=== PATIENT | male | born 1975 | race African-American/Black ===

== ENCOUNTER 2024-08-20 08:21 | Outpatient (REF) | payer OTHER, SELFPAY ==
[2024-08-20 11:20] LABS: MANUAL DIFF FLAG NO
[2024-08-20 11:27] LABS: Basophils Percent Auto 0.6 % (0-2); Eosinophils Absolute Auto 0.1 X10*3/uL (0.0-0.4); Eosinophils Percent Auto 1.5 % (0-4); Hematocrit 45.7 % (42.0-52.0); Hemoglobin 15.7 g/dl (14.0-18.0); Imm Gran Abs Auto 0.01 X10*3/uL (0.00-0.03); Imm Gran Pct Auto 0.2 % (0.0-0.4); Lymphocytes Absolute Auto 1.6 X10*3/uL (1.2-4.9); Lymphocytes Percent Auto 29.5 % (20-40); Mean Corpuscular HGB Conc 34.4 g/dl (31.0-36.0); Mean Corpuscular Hemoglobin 30.6 pg (27.0-33.0); Mean Corpuscular Volume 89.1 fL (80.0-98.0); Mean Platelet Volume 10.7 fL (9.4-12.4); Monocytes Absolute Auto 0.3 X10*3/uL (0.1-1.2); Monocytes Percent Auto 5.2 % (2-11); Neutrophils Absolute Auto 3.4 x10*3/uL (2.0-8.3); Platelet Count 246 X10*3/uL (160-400); Red Blood Count 5.13 X10*6/uL (4.60-5.80); Red Cell Distribution Width 11.9 % (11.0-16.0); White Blood Count 5.4 X10*3/uL (4.8-10.8)
[2024-08-20 11:53] LABS: Alanine Aminotransferase 20 U/L (0-40); Albumin Level 4.1 g/dL (3.5-5.0); Alkaline Phosphatase 72 U/L (39-117); Anion Gap 12 (12-20); Aspartate Amino Transferase 18 U/L (5-37); Bilirubin Total 0.6 mg/dL (0.0-1.0); Blood Urea Nitrogen 15 mg/dL (9-16); Calcium 8.9 mg/dL (8.4-10.2); Carbon Dioxide 28 mmol/L (22-29); Chloride 102 mmol/L (96-108); Cholesterol 209 mg/dL (<200); Estimated Glomerular Filt Rate > 60; Glucose Random 300 mg/dL (60-115); HDL Cholesterol 46 mg/dL (>40); LDL Cholesterol Calculated 128 mg/dL (<100); Potassium 3.5 mmol/L (3.3-5.1); Sodium 138 mmol/L (135-145); Total Protein 7.1 g/dL (6.5-8.0); Triglycerides 176 mg/dL (<150)
[2024-08-20 11:58] LABS: PSA,Total (Free>4and<10) 0.96 ng/mL (0.00-4.00)
[2024-08-20 12:02] LABS: HBS Num1 0.19 mIU/mL (0-7.99); HBc Num1 0.08 S/CO (0.00-0.79); HIV AB/AG Nonreactive (Nonreactive); HIV Num 1 0.08 S/CO (0.00-0.99); Hepatitis B Core Antibody Nonreactive (Nonreactive); Hepatitis B Surface Antigen Negative (Negative); ~HepC Num1 0.15 S/CO (0.00-0.79); ~Hepatitis B Surface Antibody NONREACTIVE (Nonreactive); ~Hepatitis C Antibody Nonreactive (Nonreactive)
[2024-08-20 12:08] LABS: TSH reflex Free T4 1.94 uIU/mL (0.32-4.0)
[2024-08-20 12:13] LABS: Folate 15.1 ng/mL (> or = 4.0); Vitamin B12 791 pg/mL (200-900)
[2024-08-20 13:26] LABS: CT PCR NOT DETECTED (Not Detect.); NG PCR NOT DETECTED (Not Detect.)
== END 2024-08-20 08:22 | disposition home or self-care (01) ==
LOC: HO.HHCL 08:21
PROVIDERS: Visit Provider Nurse Practitioner Family
DX: Z00.00 Encounter for general adult medical examination without abnormal findings (principal)
CPT/HCPCS: 80053; 80061; 82607; 82746; 84153; 84443; 85025; 86704; 86706; 86803; 87340; 87389; 87491; 87591

== ENCOUNTER 2024-09-10 08:22 | Outpatient (REF) | payer OTHER, SELFPAY ==
[2024-09-10 11:57] LABS: Anion Gap 10 (12-20); Blood Urea Nitrogen 12 mg/dL (9-16); Calcium 10.2 mg/dL (8.4-10.2); Carbon Dioxide 30 mmol/L (22-29); Chloride 105 mmol/L (96-108); Estimated Glomerular Filt Rate > 60; Glucose Random 110 mg/dL (60-115); Potassium 3.6 mmol/L (3.3-5.1); Sodium 141 mmol/L (135-145)
== END 2024-09-10 08:23 | disposition home or self-care (01) ==
LOC: HO.HHCL 08:22
PROVIDERS: Visit Provider Nurse Practitioner Family
DX: E11.65 Type 2 diabetes mellitus with hyperglycemia (principal)
CPT/HCPCS: 36415; 80048

== ENCOUNTER 2024-09-16 08:56 | Outpatient (REF) | payer OTHER, SELFPAY ==
[2024-09-16 11:58] LABS: Creatinine Urine 36.94 mg/dL; Microalbumin Urine < 5.0 mg/L
== END 2024-09-16 08:57 | disposition home or self-care (01) ==
LOC: HO.HHCL 08:56
PROVIDERS: Visit Provider Nurse Practitioner Family
DX: E11.65 Type 2 diabetes mellitus with hyperglycemia (principal)
CPT/HCPCS: 82570

== ENCOUNTER 2024-10-09 15:32 | Outpatient (REF) | payer OTHER, SELFPAY ==
--- OUTSIDE RECORDS SUMMARY | 2024-10-09 15:35 | XMS_ITS | Encounter Summary ---
Author Organization [employer] Address [address] [place] [address] Care Team Providers Care Administrative Support Manager Name Role Phone Monae Sneed BODY STRAIGHTENER Primary Care Provider [phone] Reason for Visit * Reason Onset Date Comments PA for Trulicity 09/10/2024 Encounter Details Date Type Department Care Team (Late st Contact Info) Description 09/10/2024 Telephone [facility] [address] [place], [place] [phone] Jacquelyn Gardiner MA PA for Trulicity Social History Tobacco Use Types Packs/Day Years Used Date Smoking Tobacco: Never Smokeless Tobacco: Never Alcohol Use Standard Drinks/Week Comments Yes 0 (1 standard drink = 0.6 oz pur e alcohol) Social drinker Depression Answer Date Recorded Patient Health Questionnaire-9 Score 0 08/19/2024 Patient Health Questionnaire-9 Score 0 08/19/2024 Last PHQ-9: Questionnaire Data Not on file 1 10/20/2023 Housing Stability Answer Date Recorded What is your housing situation today? I have yung rose 08/12/[address] you li ve. Do you have problems with any of the following? None of the above 08/12/2024 Food Insecurity Answer Date Recorded Within the past 12 months, y ou worried that your food would run out before you got money to buy more: Never True 08/12/2024 Within the past 12 months,th e food you bought just didn't last and you didn't have enough money to get more: Never True 07/2024 Transportation Answer Date Recorded In the past 12 months, has l ack of transportation kept you from medical appts, meetings, work or from getting things needed for daily living? No 08/12/2024 Utilities Answer Date Recorded In the past 12 months, has t he electric, gas, oil or water company threatened to shut off services in your home? No 08/12/2024 Depression Answer Date Recorded Patient Health Questionnaire-2 Score 0 08/19/2024 Internet Access Answer Date Recorded Internet Access Q1 Yes 08/12/2024 Internet Access Q2 Not on file 08/12/2024 Sex and Gender Information Value Date Recorded Sex Assigned at Male 07/02/2022 10:17 AM EDT Legal Sex Male 10:17 AM EDT Gender Identity Male 08/19/2024 2:22 PM EST Sexual Orientation Straight 08/19/2024 2: 22 PM EST documented as of this encounter Miscellaneous Notes * Telephone Encounter - Jacquelyn Gardiner MA - 09/10/2024 10:26 AM EST PA for Trulicity 0.75mg signed and faxed to [facility] . Confirmation received and sent to scan. If patient calls to check status on above, please advise them to contact Pharmacy . documented in this encounter Plan of Treatment Upcoming Encounters Date Type Department Care Team (Late st Contact Info) Description 10/12/2024 3:30 PM EST Medication Management [facility] [address] [place] [address] Danyell Bird, BrandonD [address] [place] [address] documented as of this encounter Visit Diagnoses Not on filedocumented in this encounter Additional Health Concerns Assessment Noted Time PHQ-9 Depression Total Score: 0 08/19/20 24 2:33 PM EST documented as of this encounter Care Teams Administrative Support Manager Relationship Specialty Start Date End Date Monae Sneed FNP [address] [place] [address] PCP - General Family Medicine 08/19/24 documented as of this encounter
--- OUTSIDE RECORDS SUMMARY | 2024-10-09 15:35 | XMS_ITS | Encounter Summary ---
Author Organization [email or web address] Address [address] [facility] [address] [place] [address] Care Team Providers Care Oyster Shucker Name Role Phone Monae Sneed CLAY DRY PRESS OPERATOR Primary Care Provider [phone] Reason for Visit * Reason Onset Date Comments Medication Prior Authorization 09/14/2024 T rulicity Encounter Details Date Type Department Care Team (Late st Contact Info) Description 09/14/2024 Telephone [facility] [address] [place], [place] [phone] Kenyatta Arreguin RN [address] [place] [address] Medication Prior Authorization (Trulicity) Social History Tobacco Use Types Packs/Day Years [...] encounter Miscellaneous Notes * Telephone Encounter - Kenyatta Arreguin RN - 09/14/2024 11:32 AM EST Davon GRIMES approved. [facility] pharmacy informed. Pharmacy will fill Rx today and call patient when ready. documented in this encounter Plan of Treatment Upcoming Encounters Date Type Department Care Team (Late st Contact Info) Description 10/12/2024 3:30 PM EST Medication Management [facility] [address] [place] [address] Danyell Bird, PharmD [address] [place] [address] documented as of this encounter Visit Diagnoses Not on filedocumented in this encounter Additional Health Concerns Assessment Noted Time PHQ-9 Depression Total Score: 0 08/19/20 24 2:33 PM EST documented as of this encounter Care Teams Oyster Shucker Relationship Specialty Start Date End Date Monae Sneed FNP [address] [place] [address] PCP - General Family Medicine 08/19/24 documented as of this encounter
--- OUTSIDE RECORDS SUMMARY | 2024-10-09 15:35 | XMS_ITS | Encounter Summary ---
Author Organization [employer] Address [address] [place] [address] Care Team Providers Care Director Hris Name Role Phone Monae Sneed [facility] Primary Care Provider [phone] Reason for Visit * Reason Comments Diabetes Encounter Details Date Type Department Care Team (Late st Contact Info) Description 09/18/2024 3:30 PM EST Office Visit [facility] [address] [place], [place] [phone] Monae Sneed FNP [address] [place], [place] [phone] Type 2 diabetes mellitus with hyperglycemia, without long-term current use of insulin ([facility]) (Primary Dx); Primary hypertension Social History Tobacco Use Types Packs/Day Years Used Date Smoking Tobacco: Never Smokeless Tobacco: Never Tobacco Cessation:Counseling Given: Not Answered Alcohol Use Standard Drinks/Week Comments Yes 0 [...] PM EST documented as of this encounter Last Filed Vital Signs Vital Sign Reading Time Taken Comments Blood Pressure 126/91 09/18/2024 3:58 PM EST Pulse 99 09/18/2024 3:58 PM EST Temperature - - Respiratory Rate 18 09/18/2024 3:58 PM EST Oxygen Saturation 98% 09/18/2024 3:58 PM EST Inhaled Oxygen Concentration - - Weight 83.1 kg (183 lb 3.2 oz) 09/18/2024 3:58 P M EST Height 170.2 cm (5' 7 ) 09/18/2024 3:58 PM EST Body Mass Index 28.69 09/18/2024 3:58 PM EST documented in this encounter Progress Notes * Monae Sneed, DAVID - 09/18/2024 3:30 PM EST ubjective Elver Rainey is a 49 y.o. male who presents to the office for follow up visit - chronic conditions - BP and blood glucose Interim history: Elevated blood pressure: Last visit 09/04/2024 Home BP log BP range from 101/67 - 136/67. Patient didnot bring his BP log to the visit reports BP not high. BP at today visit 126/91. Patient reports daily exercise, healthy diet and compliance with medication. Type 2 DM: At last visit 09/04/2024 patient blood glucose reading log twice daily. Average blood sugar 168, lowest 112 and highest 178. Today visit average blood sugar 130, lowest 92 highest 162. Reports has started his Trulicity weekly injection, eating healthy, reducing carbohydrates, more protein,vegetables and fruits. Works at least 3 times a week in the gym lifting weights. Patient is motivated to stay healthy. Current concerns: No current concerns Current Outpatient Medications Medication Sig Dispense Refill atorvastatin (Lipitor) 20 MG tablet Take 1 tablet (20 mg) by mouth Once per day. 30 tablet 11 Blood Glucose Monitoring Suppl (The Original SoupManStyle [place] Lite) w/Device kit 1 each 2 times daily. 1 kit 0 Blood Pressure Monitoring (Blood Pressure Cuff) misc Take your blood pressure twice daily, record and bring log to your next visit 1 each 0 Dulaglutide (Trulicity) 0.75 MG/0.5ML solution auto-injector Inject 0.5 mL (0.75 mg) under the skin1 (one) time per week. 0.5 mL 3 glucose blood test strip Check blood sugar in the morning before meals and at bed time. Keep recordand bring with you to your clinic visits 100 each 1 Lancet Device misc Check blood sugar in the morning before meals and at bed time. Keep record and bring with you to your clinic visits 1 each 1 losartan (Cozaar) 25 MG tablet Take 1 tablet (25 mg) by mouth Once per day. 30 tablet 11 metFORMIN (Glucophage) 500 MG tablet Take 500 mg with dinner daily 30 tablet 3 omega-3 (fish oil) 1000 MG capsule Take 1 capsule by mouth Once per day. No current facility-administered medications for this visit. Patient Active Problem List Diagnosis Exercise counseling Encounter for wellness examination in adult Hypertension Type 2 diabetes mellitus with hyperglycemia, without long-term current use of insulin ([facility]) Dietary counseling Hx of dizziness Hyperlipidemia Health care maintenance Class 1 obesity due to excess calories with body mass index (BMI) of 31.0 to 31.9 in adult Review of Systems Constitutional: Negative for fever. Respiratory: Negative for cough, chest tightness, shortness of breath and wheezing. Cardiovascular: Negative for chest pain, palpitations and leg swelling. Endocrine: Negative for polydipsia, polyphagia and polyuria. Neurological: Negative for dizziness, tremors and headaches. Psychiatric/Behavioral: Negative for agitation, behavioral problems, sleep disturbance and suicidalideas. Objective Visit Vitals BP (!) 126/91 (BP Location: Left arm, Patient Position: Sitting, BP Cuff Size: Large adult) Pulse 99 Resp 18 Ht 5' 7 (1.702 m) Wt 183 lb 3.2 oz (83.1 kg) SpO2 98% BMI 28.69 kg/m?? Smoking Status Never BSA 1.98 m?? Glucose Blood, POC 131 mg/dL Physical Exam Vitals reviewed. Constitutional: General: He is not in acute distress. Appearance: Normal appearance. He is not ill-appearing. HENT: Head: Atraumatic. Cardiovascular: Rate and Rhythm: Normal rate and regular rhythm. Pulses: Normal pulses. Heart sounds: Normal heart sounds. No murmur heard. Pulmonary: Effort: Pulmonary effort is normal. Breath sounds: Normal breath sounds. No wheezing. Skin: Capillary Refill: Capillary refill takes less than 2 seconds. Neurological: Mental Status: He is alert and oriented to person, place, and time. Motor: No weakness. Psychiatric: Mood and Affect: Mood normal. Behavior: Behavior normal. Assessment/Plan Problem List Items Addressed This Visit Hypertension Current Assessment & Plan BP Readings from Last 4 Encounters: 09/18/24 (!) 126/91 09/15/24 132/88 09/04/24 140/82 08/19/24 138/90 Pertinent negatives include no blurred vision, chest pain, headaches, malaise/fatigue, neck pain, orthopnea, palpitations, peripheral edema, PND, shortness of breath or sweats. There are no associated agents to hypertension. Risk factors for coronary artery disease include diabetes stress and elevated lipid panel Treatments include Losartan & provides significant improvement. There are no compliance problems. There is no history of angina, kidney disease, CAD/SD or heart failure. Plan Take your meds as prescribed. Do not change or discontinue current prescriptions without consultinghealth care provider Aerobic exercise daily at 30 mins daily to reduce BP and increase as tolerated. Eat heart healthy diet such as DASH. Low-sodium diet less than 2g/day to reduce BP and prevent ASCVD. Monitor and record your home BP 1-2 x 3 times/wk with goal of <130/90. Bring your log to the next visit Seek immediate medical attention for chest pain, palpitations, SOB, syncope, or sudden changes in mental status. Type 2 diabetes mellitus with hyperglycemia, without long-term current use of insulin ([facility]) - Primary Current Assessment & Plan Patient with blood sugar log for 2 weeks reveals average blood glucose 130 mg/dL, lowest 92 mg/dL and highest reading 162. No hypoglycemia noted Plan Continue to take your medications as directed Keep all your medical appointments Monitor your blood glucose twice daily x 3 times per week, before breakfast and at bed time, keep alog and take with you to your next visit Eat healthy and focus on healthyfood choices daily fruits, vegetables, grains, low fat milk, low carbohydrate and fat Do not skip meals Avoid sugary drinks and food Maintain healthy weight as this will lower your risk for many health problems. Stay up to date with your vaccines Pay attention to your feet Relevant Orders POCT Glucose (Completed) [facility] PHOTOGRAPHIC PROCESS SCREEN MAKER Attestation PHOTOGRAPHIC PROCESS SCREEN MAKER Resident Attestation: Patient was seen and evaluated by Monae HERNANDEZ , in collaboration with Jesusita HERNANDEZ who has reviewed my assessment and plan. I, Jesusita HERNANDEZ, have reviewed the resident's note and agree with the assessment & plan of care as documented above. documented in this encounter Miscellaneous Notes * Assessment & Plan Note - DAVID Del Real - 09/18/2024 10:06 PM EST Associated Problem(s): Type 2 diabetes mellitus with hyperglycemia, without long-term current use of insulin ([facility]) Patient with blood sugar log for 2 weeks reveals average blood glucose 130 mg/dL, lowest 92 mg/dL and highest reading 162. No hypoglycemia noted Plan Continue to take your medications as directed Keep all your medical appointments Monitor your blood glucose twice daily x 3 times per week, before breakfast and at bed time, keep alog and take with you to your next visit Eat healthy and focus on healthyfood choices daily fruits, vegetables, grains, low fat milk, low carbohydrate and fat Do not skip meals Avoid sugary drinks and food Maintain healthy weight as this will lower your risk for many health problems. Stay up to date with your vaccines Pay attention to your feet * Assessment & Plan Note - DAVID Del Real - 09/18/2024 9:51 PM ESTAssociated Problem(s): Hypertension BP Readings from Last 4 Encounters: 09/18/24 (!) 126/91 09/15/24 132/88 09/04/24 140/82 08/19/24 138/90 Pertinent negatives include no blurred vision, chest pain, headaches, malaise/fatigue, neck pain, orthopnea, palpitations, peripheral edema, PND, shortness of breath or sweats. There are no associated agents to hypertension. Risk factors for coronary artery disease include diabetes stress and elevated lipid panel Treatments include Losartan & provides significant improvement. There are no compliance problems. There is no history of angina, kidney disease, CAD/SD or heart failure. Plan Take your meds as prescribed. Do not change or discontinue current prescriptions without consultinghealth care provider Aerobic exercise daily at 30 mins daily to reduce BP and increase as tolerated. Eat heart healthy diet such as DASH. Low-sodium diet less than 2g/day to reduce BP and prevent ASCVD. Monitor and record your home BP 1-2 x 3 times/wk with goal of <130/90. Bring your log to the next visit Seek immediate medical attention for chest pain, palpitations, SOB, syncope, or sudden changes in mental status. documented in this encounter Plan of Treatment Upcoming Encounters Date Type Department Care Team (Late st Contact Info) Description 10/12/2024 3:30 PM EST Medication Management [facility] [address] [place] [address] Danyell Bird, PharmD [address] [place] [address] documented as of this encounter Procedures Procedure Name Priority Date/Time Associated Diagnosis Comments POCT GLUCOSE Routine 09/18/2024 3:59 PM EST Type 2 diabetes mellitus with hyperglycemia, without long-term current use of insulin ([facility]) documented in this encounter Results * POCT Glucose (09/18/2024 3:59 PM EST) Glucose Blood, POC 131 60 - 200 mg/dL QC Media Lot # [id number] Lot# Expiration Date 62, Blood Capillary blood specimen / Unknown 09/18/2024 3:59 PM EST Monae HERNANDEZ POINT OF CARE TEST ENTER/EDIT ORDERABLES Final Result documented in this encounter Visit Diagnoses Diagnosis Type 2 diabetes mellitus with hyperglycemia, without long-term current use of insulin ([facility])- Primary Primary hypertension Unspecified essential hypertension documented in this encounter Additional Health Concerns Assessment Noted Time PHQ-9 Depression Total Score: 0 08/19/20 2:33 PM EST documented as of this encounter Care Teams Director Hris Relationship Specialty Start Date End Date Monae Sneed FNP [address] [place] [id number] PCP - General Family Medicine 08/19/24 documented as of this encounter
--- OUTSIDE RECORDS SUMMARY | 2024-10-09 15:35 | XMS_ITS | Encounter Summary ---
Author Organization [employer] Address [address] [place] [address] Care Team Providers Care Isotope Technician Name Role Phone Monae Sneed [facility] Primary Care Provider [phone] Encounter Details Date Type Department Care Team (Latest Contact Info) Description 09/18/2024 Travel Social History Tobacco Use Types Packs/Day Years [...] PM EST documented as of this encounter Plan of Treatment Upcoming Encounters Date Type Department Care Team (Late st Contact Info) Description 10/12/2024 3:30 PM EST Medication Management [facility] [address] [place] [address] Danyell Bird, BrandonD [address] [place] [address] documented as of this encounter Visit Diagnoses Not on filedocumented in this encounter Additional Health Concerns Assessment Noted Time PHQ-9 Depression Total Score: 0 08/19/20 24 2:33 PM EST documented as of this encounter Care Teams Isotope Technician Relationship Specialty Start Date End Date Monae Sneed FNP [address] [place] [address] PCP - General Family Medicine 08/19/24 documented as of this encounter
--- OUTSIDE RECORDS SUMMARY | 2024-10-09 15:35 | XMS_ITS | Encounter Summary ---
Author Organization [employer] Address [address] [place] [address] Care Team Providers Care Plans Examiner Name Role Phone Monae Sneed Primary Care Provider [phone] Encounter Details Date Type Department Care Team (Late st Contact Info) Description 09/16/2024 Orders Only [facility] [address] [place], [place] [phone] Monae Sneed FNP [address] [place], [place] [phone] Social History Tobacco Use Types Packs/Day Years [...] the past 12 months, has t he [employer], gas, oil or water [employer] threatened to shut off services in your [...] Description 10/12/2024 3:30 PM EST Medication Management [facility] [address] [place], [place] [phone] Danyell Bird, PharmD [address] [place] [address] documented as of this encounter Procedures Procedure Name Priority Date/Time Associated Diagnosis Comments ALBUMIN, RANDOM URINE W/CREATININE Routine 09/16/2024 8:58 AM EST documented in this encounter Results * Albumin, Random Urine W/Creatinine (09/16/2024 8:58 AM EST) Creatinine, Urine 36.94 mg/dL [facility] Microalbumin Urine <5.0 mg/L [facility] Microalbum Creatinine Ratio Ur TNP <30 ug/mg cr [facility] Comment:Unable to calculate albumin/creatinine ratio due to lowmicroalbumin or creatinine result. 09/16/2024 8:58 AM EST 09/16/2024 11:08 AM EST us Monaekatie Sneed BIOMEDICAL PHOTOGRAPHER LAB URINE ORDERABLES Final Res ult [facility] [address] [place] [address] [phone] documented in this encounter Visit Diagnoses Not on filedocumented in this encounter Additional Health Concerns Assessment Noted Time PHQ-9 Depression Total Score: 0 08/19/20 2:33 PM EST documented as of this encounter Care Teams Plans Examiner Relationship Specialty Start Date End Date Monae Sneed FNP [address] [place] [address] PCP - General Family Medicine 08/19/24 documented as of this encounter
--- OUTSIDE RECORDS SUMMARY | 2024-10-09 15:35 | XMS_ITS | Clinical Summary ---
Author Organization [facility] Address [address] [facility] [address] [place] [address] Care Team Providers Care Food Supervisor Name Role Phone Monae Sneed [facility] Primary Care Provider Allergies No known active allergies Medications omega-3 (fish oil) 1000 MG capsule Take 1 capsule by mouth Once per day. Active metFORMIN (Glucophage) 500 MG tabletIndications:T ype 2 diabetes mellitus with hyperglycemia, without long-term current use of insulin (CMS/HCC) Take 500 mg with dinner daily 30 tablet 3 4 Active Dulaglutide (Trulicity) 0.75 MG/0.5ML solution auto-injectorIndica tions:Type 2 diabetes mellitus with hyperglycemia, without long-term current use of insulin (CMS/HCC) Inject 0.5 mL (0.75 mg) under the skin 1 (one) time per week. 0.5 mL 3 4 Active Blood Pressure Monitoring (Blood Pressure Cuff) miscIndications:Hyp ertension, unspecified type Take your blood pressure twice daily, record and bring log to your next visit 1 each 4 Active glucose blood test stripIndications:Ty pe 2 diabetes mellitus with hyperglycemia, without long-term current use of insulin (CMS/HCC) Check blood sugar in the morning before meals and at bed time. Keep record and bring with you to your clinic visits 100 each 4 Active Lancet Device miscIndications:Typ e 2 diabetes mellitus with hyperglycemia, without long-term current use of insulin (CMS/HCC) Check blood sugar in the morning before meals and at bed time. Keep record and bring with you to your clinic visits 1 each 4 Active atorvastatin (Lipitor) 20 MG tabletIndications:H yperlipidemia, unspecified hyperlipidemia type Take 1 tablet (20 mg) by mouth Once per day. 30 tablet 11 4 08/21/20 25 Active Blood Glucose Monitoring Suppl (n1healthStyle Assemblage Lite) w/Device kitIndications:Type 2 diabetes mellitus with hyperglycemia, without long-term current use of insulin ([facility]) 1 each 2 times daily. 1 kit 5 Active losartan (Cozaar) 25 MG tabletIndications:T ype 2 diabetes mellitus with hyperglycemia, without long-term current use of insulin ([facility]),Hypertens ion, unspecified type Take 1 tablet (25 mg) by mouth Once per day. 30 tablet 11 5 09/04/19 26 Active Active Problems Problem Noted Date Diagnosed Date Health care maintenance 09/11/2024 Class 1 obesity due to exces s calories with body mass index (BMI) of 31.0 to 31.9 in adult 09/11/2024 Hyperlipidemia 08/21/2024 Assessment & Plan (08/21/2024 11:45 AM EST): Elevated lipid panel Plan Start 40 mg Atorvastatin daily Repeat lipid panel in 4-6 weeks Exercise counseling 08/20/2024 Assessment & Plan (09/11/2024 9:09 PM EST): Be physically active at least 45 minutes a day - Assessment & Plan (08/20/2024 8:30 AM EST): Plan Be physically active at least 45 minutes a day Aerobic exercise daily at least 30 mins daily and increase as tolerated. Helps in reducing BP and drives sugar from the blood to the cells Encounter for wellness examination in adult 08/02 Assessment & Plan (08/20/2024 8:10 AM EST): Remarkable for hyperglycemia and elevated blood pressure. Plan Routine labs, screening and referrals ordered. See orders Dietary and exercise counseling Discussed routine vaccines with patient deferred to next visit. Patient in agreement Next annual wellness visit 08/2025 Hypertension 08/20/2024 Assessment & Plan (09/18/2024 9:51 PM EST): BP Readings from Last 4 Encounters: 09/18/24 [...] is no history of angina, kidney disease, CAD/OH or heart failure. Plan Take your meds as prescribed. Do not change or discontinue current prescriptions without consulting health care provider Aerobic exercise daily at 30 [...] syncope, or sudden changes in mental status. Assessment & Plan (08/20/2024 8:26 AM EST): Plan Blood pressure cuff prescribed Lab work ordered Aerobic exercise daily at 30 mins daily to reduce BP and increase as tolerated. Eat heart healthy diet such as DASH. Low-sodium diet less than 2g/day to reduce BP and prevent ASCVD. Monitor and record your home BP 1-2 x day with goal of <140/90. Bring your log to the next visit Seek immediate medical attention for chest pain, palpitations, SOB, syncope, or sudden changes in mental status. Follow up in 2 weeks Type 2 diabetes mellitus wit h hyperglycemia, without long-term current use of insulin 08/20/2024 Assessment & Plan (09/18/2024 10:06 PM EST): Patient with blood sugar log for 2 weeks reveals average blood glucose 130 mg/dL, lowest 92 mg/dL and highest reading 162. No hypoglycemia noted Plan Continue to take your medications as directed Keep all your medical appointments Monitor your blood glucose twice daily x 3 times per week, before breakfast and at bed time, keep a log and take with you to your next visit Eat healthy and focus on healthyfood choices daily fruits, vegetables, grains, low fat milk, low carbohydrate and fat Do not skip meals Avoid sugary drinks and food Maintain healthy weight as this will lower your risk for many health problems. Stay up to date with your vaccines Pay attention to your feet Assessment & Plan (08/20/2024 3:57 PM EST): Plan Appropriate lab work ordered Prescribe Metformin 500 mg and Dulaglutide 0.75 mg Take your medication as prescribed Teach back education of prescribed medications Teach back education how to use Trulicity injector pen Glucometer, lancets and strips prescribe Check your blood sugar twice daily- morning before breakfast and at bedtime. Record your reading and bring your log to next visit. Referral to [facility]ler, vision, dental & CD[facility] Dietary counseling Exercise counseling Follow up in 4 weeks or PRN Dietary counseling 08/20/2024 Assessment & Plan (08/20/2024 2:54 PM EST): Eat 3 meals a day, especially breakfast Eat healthy and focus on healthyfood choices daily fruits, vegetables, grains, low fat milk, low carbohydrate and fat Avoid food and drink with added sugar Eat heart healthy diet such as DASH. Low-sodium diet less than 2g/day to reduce BP and prevent ASCVD. Hx of dizziness 08/20/2024 Assessment & Plan (08/20/2024 3:10 PM EST): Wear light clothing Stay hydrated Keep the kitchen ventilated If feeling dizzy move away from the hot environment into a cooler environment. Drink cold fluid. You can use a fan or pour some cool water on your Encounters Date Type Department Care Team Description 10/06/2024 Travel 09/18/2024 3:30 PM EST Office Visit [facility] [address] [place] [address] Monae Sneed FNP Type 2 diabetes mellitus with hyperglycemia, without long-term current use of insulin ([facility]) (Primary Dx); Primary hypertension 09/18/2024 Travel 09/16/2024 Orders Only [facility] [address] [place] [address] Monae Sneed FNP 09/15/2024 Travel 09/15/[address] [address] Tiara Beckham [place] Chart Prep 09/14/2024 Telephone [facility] [address] [place] [phone] Kenyatta Arreguin, pressure vessel inspector Prior Authorization (Trulicity) 09/10/[address] [address] Jacquelyn Gardiner [place] PA for Trulicity 09/09/[address] [address] Okhipo, Monae, [employer] Prior Authorization (Trulicity 0.75mg.0.5mL) 09/04/2024 3:30 PM EST Office Visit [address] [address] Okhipo Monae, [employer] Type 2 diabetes mellitus with hyperglycemia, without long-term current use of insulin (CMS/[facility]) (Primary Dx); Health care maintenance; Hypertension, unspecified type; Dietary counseling; Exercise counseling; Class 1 obesity due to excess calories with body mass index (BMI) of 31.0 to 31.9 in adult, unspecified whether serious comorbidity present 09/03/[address] [address] OkhipoNicMonae, [employer]ER 09/03/[address] [address] Okhipo Monae, [employer]ER Type 2 diabetes mellitus with hyperglycemia, without long-term current use of insulin (CMS/HCC) (Primary Dx) 09/01/[address] [phone] Tiara Beckham [place] Chart Prep 08/28/[address] [address] Okhipo Monae, COTTON TIER Prior Authorization ([facility] PA Request: Trulicity) 08/21/[address] [phone] Hailey Abad RN 08/19/2024 2:45 PM EST Office Visit [facility] [address] [place] [address] Monae Sneed FNP Encounter for wellness examination in adult (Primary Dx); Type 2 diabetes mellitus with hyperglycemia, without long-term current use of insulin ([facility]); Hypertension, unspecified type; Dietary counseling; Exercise counseling; Hx of dizziness; Hyperlipidemia, unspecified hyperlipidemia type 08/19/2024 Travel 08/17/2024 Telephone [facility] [address] [place] [address] Tiara Beckham MA Chart Prep 08/12/2024 Patient Outreach [facility] [address] [place] [address] Monae Sneed FNP Pre-visit Planning (SDOH screening is negative and Tobacco screening is negative) from Last 3 Months Immunizations Name Administration Dates Next Due Influenza injectable quadriv alent IIV4 with preservative 06/06/2015 Influenza injectable quadrivalent preservative f ree 11/12/2016 Influenza, seasonal, injectable, preservative fr ee 09/15/2024 Pfizer Covid-19 Vaccine 12+ 09/15/2024 Pneumococcal Conjugate PCV 20 09/04/2024 Tdap 09/04/2024,10/24/2015 Family History Medical History Relation Name Comments Hypertension Mother Relation Name Status Comments Mother Social History Tobacco Use Types Packs/Day Years [...] Orientation Straight 08/19/2024 2: 22 PM EST Last Filed Vital Signs Vital Sign Reading Time Taken Comments Blood Pressure 126/91 09/18/2024 3:58 PM EST Pulse 99 09/18/2024 3:58 PM EST Temperature 36.8 ??C (98.2 ??F) 09/04/2024 3:14 PM ES T Respiratory Rate 18 09/18/2024 3:58 PM EST Oxygen Saturation 98% 09/18/2024 3:58 PM EST Inhaled Oxygen Concentration - - Weight 83.1 kg (183 lb 3.2 oz) 09/18/2024 3:58 P M EST Height 170.2 cm (5' 7 ) 09/18/2024 3:58 PM EST Body Mass Index 28.69 09/18/2024 3:58 PM EST Plan of Treatment Upcoming Encounters Date Type Department Care Team (Late st Contact Info) Description 10/12/2024 3:30 PM EST Medication Management [facility] [address], [place] [phone] Danyell Bird, PharmD [address] [place] [address] Health Maintenance Due Date Last Done Comments CT Colonography 1973 Colonoscopy 1973 Colorectal Cancer Screening 1973 FIT DNA/Cologuard 1973 FIT 1973 FOBT 1973 Sigmoidoscopy 1973 Eye Exam 1983 Family Planning (PISQ) 1988 Hepatitis B Vaccines (1 of 3 - 19+ 3-dose series) 1992 Zoster Vaccines (1 of 2) 2023 IPV Vaccines (2 of 3 - Adult catch-up series) 10/15/2024 09/17/2024 Diabetes: Hemoglobin A1C 11/17/2024 08/19/2024 SDOH Screening 08/12/2025 08/12/2024 Depression Screening 08/19/2025 08/19/2024, 08/19/20 24 Lipid Panel 08/20/2025 08/20/2024 Alcohol/Substance Use Screening 09/04/2025 09/04/2024 Diabetes: Foot Exam 09/04/2025 09/04/2024, 09/04/2024, 09/04/2024, Additional history exists Diabetes: Urine Protein Screening 09/16/2025 09/16/2024 Tobacco Screening 09/18/2025 09/18/2024 DTaP/Tdap/Td Vaccines (3 - Td or Tdap) 09/04/2034 09/04/2024, 10/24/2015 RSV Patients and Patients Aged 60 years or older (1 - 1-dose 75+ series) 2048 HIV Screening Completed 08/20/2024 Hepatitis C Screening Completed 08/20/2024 Pneumococcal Vaccine: 50+ Years Completed 09/04/2024 COVID-19 Vaccine Completed 09/15/2024, 09/2021, 01/08/2021, Additional history exists Influenza Vaccine Completed 09/15/2024, , 06/06/2015 HIB Vaccines Aged Out No longer eligi ble based on patient's age to complete this topic HPV Vaccines Aged Out No longer eligi ble based on patient's age to complete this topic Hepatitis A Vaccines Aged Out No long er eligible based on patient's age to complete this topic Meningococcal Vaccine Aged Out No jimmie sri eligible based on patient's age to complete this topic RSV under 20 months Aged Out No longe r eligible based on patient's age to complete this topic Rotavirus Vaccines Aged Out No longer eligible based on patient's age to complete this topic Procedures Procedure Name Priority Date/Time Associated Diagnosis Comments POCT GLUCOSE Routine 09/18/2024 3:59 PM EST Type 2 diabetes mellitus with hyperglycemia, without long-term current use of insulin (CMS/HCC) ALBUMIN, RANDOM URINE W/CREATININE Routine 09/16/2024 8:58 AM EST BASIC METABOLIC PANEL Routine 09/10/2024 8:28 AM EST Type 2 diabetes mellitus with hyperglycemia, without long-term current use of insulin (CMS/HCC) POCT GLUCOSE Routine 09/04/2024 3:17 PM EST Type 2 diabetes mellitus with hyperglycemia, without long-term current use of insulin (CMS/HCC) PSA, TOTAL WITH REFLEX TO PSA, FREE Routine 08/20/2024 8:25 AM EST Encounter for wellness examination in adult TSH W/REFLEX TO FT4 Routine 08/20/2024 8 :25 AM EST Encounter for wellness examination in adult VITAMIN B12/FOLATE, SERUM PANEL Routine 08/20/2024 8:25 AM EST Encounter for wellness examination in adult HEPATITIS C AB W/REFL TO HCV RNA, QN, PCR Routine 08/20/2024 8:25 AM EST Encounter for wellness examination in adult HEPATITIS B SURFACE ANTIGEN, EIA Routine 08/20/2024 8:25 AM EST Encounter for wellness examination in adult HEPATITIS B CORE AB TOTAL Routine 08/20/2024 8:25 AM EST Encounter for wellness examination in adult HEPATITIS B SURFACE ANTIBODY, QUALITATIVE Routine 08/20/2024 8:25 AM EST Encounter for wellness examination in adult HIV 1/2 ANTIGEN/ANTIBODY, FOURTH GENERATION W/RFL Routine 08/20/2024 8:25 AM EST Encounter for wellness examination in adult COMPREHENSIVE METABOLIC PANEL Routine 08/20/2024 8:25 AM EST Encounter for wellness examination in adult CBC WITH AUTO DIFFERENTIAL Routine 08/20/2024 8:25 AM EST Encounter for wellness examination in adult LIPID PANEL, STANDARD Routine 08/20/2024 8:25 AM EST Encounter for wellness examination in adult Hypertension, unspecified type CHLAMYDIA/N. GONORRHOEAE RNA, TMA, UROGENITAL Routine 08/20/2024 8:25 AM EST Encounter for wellness examination in adult POCT GLYCATED HEMOGLOBIN, TOTAL Routine 08/19/2024 3:06 PM EST Type 2 diabetes mellitus with hyperglycemia, without long-term current use of insulin ([facility]) POCT GLUCOSE Routine 08/19/2024 3:06 PM EST Type 2 diabetes mellitus with hyperglycemia, without long-term current use of insulin ([facility]) from Last 3 Months Results * POCT Glucose (09/18/2024 3:59 PM EST) Only the most recent of3 resultswithin the time period is included. Pathologist [facility] Glucose Blood, POC 131 60 - 200 mg/dL QC Media Lot # [id number] Lot# Expiration Date [id number] Blood Capillary blood specimen / Unknown 09/18/2024 3:59 PM EST Monae Sneed [employer] POINT OF CARE TEST ENTER/EDIT ORDERABLES Final Result * Albumin, Random Urine W/Creatinine (09/16/2024 8:58 AM EST) Pathologist [facility] Creatinine, Urine 36.94 mg/dL [facility] Microalbumin Urine <5.0 mg/L [facility] Microalbum Creatinine Ratio Ur TNP <30 ug/mg cr [facility] Comment:Unable to calculate albumin/creatinine ratio due to lowmicroalbumin or creatinine result. 09/16/2024 8:58 AM EST 09/16/2024 11:08 AM EST Monae Sneed [facility] URINE ORDERABLES Final Res ult Performing Organization Address [facility]/ZIP Co de Phone Number [facility] [address] [place] [address] [phone] * (ABNORMAL) Basic Metabolic Panel (09/10/2024 8:28 AM EST) Sodium 141 135 - 145 mmol/L [facility] Potassium 3.6 3.3 - 5.1 mmol/L [facility] Chloride 105 96 - 108 mmol/L [facility] Carbon Dioxide 30(H) 22 - 29 mmol/L [facility] Anion Gap 10(L) 12 - 20 [facility] Urea Nitrogen (BUN) 12 9 - 16 mg/dL [facility] Creatinine, Serum 0.75 0.5 - 1.4 mg/dL [facility] Estimated Glomerular Filt Rate >60 [facility] Comment:Chronic Kidney Disea se: Estimated GFR < 60 mL/min/1.01v1Vbjoxo Kidney Disease: Estimated GFR < 15 mL/min/1.73m2 Glucose 110 60 - 115 mg/dL [facility] Calcium 10.2 8.4 - 10.2 mg/dL [facility] Blood Venous blood specimen / Unknown 09/10/2024 8:28 AM EST 09/10/2024 11:23 AM EST Monaekatie Sneed [facility] LAB BLOOD ORDERABLES Final Res ult Performing Organization Address City/[facility]/ZIP Co de Phone Number [facility] [address] [place] [address] [phone] * Vitamin B12/Folate, Serum Panel (08/20/2024 8:25 AM EST) Vitamin B12 791 200 - 900 pg/mL [facility] Comment:NORMAL 200-900 PG/ML INDETERMINATE 160-199 PG/ML DEFICIENT < 160 PG/ML Folate 15.1 > or = 4.0 ng/mL [facility] Comment:Reference Values:> o r = 4.0 ng/mL< 4.0 ng/mL suggests folate deficiency Methotrexate, aminopterin and folinic acid(leucovorin) are chemotherapeutic agents whose molecularstructures are similar to folate; therefore, the Architectfolate assay cannot be used for patients using these drugs. Blood Venous blood specimen / Unknown 08/20/2024 8:25 AM EST 08/20/2024 11:15 AM EST [facility] BLOOD ORDERABLES Final Res ult Performing Organization Address [facility]/ZIP Co de Phone Number [facility] [address] [place] [phone] * TSH W/Reflex to FT4 (08/20/2024 8:25 AM EST) TSH reflex Free T4 1.94 0.32 - 4.0 uIU/mL [facility] Blood Venous blood specimen / Unknown 08/20/2024 8:25 AM EST 08/20/2024 11:15 AM EST [facility] LAB BLOOD ORDERABLES Final Res ult Performing Organization Address [facility] Co de Phone Number [facility] [address] [place] [phone] * PSA, Total With Reflex to PSA, Free (08/20/2024 8:25 AM EST) PSA,Total (Free>4and<10) 0.96 0.00 - 4.00 ng/mL [facility] Comment:A Free PSA was not p erformed: The percentage of Free PSA can be used to enhance the differentiation of prostate cancer from benign prostatic disease in subjects whose PSA levels are between 4.0 and 10.0 ng/mL. For subjects whose PSA levels are below 4.0 or above 10.0 ng/mL, the risk of prostate cancer is determined on the basis of the PSA alone. Therefore the % Free PSA is recommended only for those subjects whose PSA levels are between 4.0 and 10.0 ng/mL.PSA methodology: Turcios Alinity i ChemiluminescentMicroparticle Immunoassay (CMIA) 08/20/2024 8:25 AM EST 08/20/2024 11:15 AM EST us Monae Montezfranky [facility] LAB BLOOD ORDERABLES Final Res ult [facility] [address] [place] [address] [phone] * CBC auto differential (08/20/2024 8:25 AM EST) White Blood Count 5.4 4.8 - 10.8 X10*3/uL [facility] Red Blood Count 5.13 4.60 - 5.80 X10*6/uL [facility] Hemoglobin 15.7 14.0 - 18.0 g/dl [facility] Hematocrit 45.7 42.0 - 52.0 % [facility] Mean Corpuscular Volume 89.1 80.0 - 98.0 fL [facility] Mean Corpuscular Hemoglobin 30.6 27.0 - 33.0 pg [facility] Mean Corpuscular HGB Conc 34.4 31.0 - 36.0 g/dl [facility] Red Cell Distribution Width 11.9 11.0 - 16.0 % [facility] Platelet Count 246 160 - 400 X10*3/uL [facility] Mean Platelet Volume 10.7 9.4 - 12.4 fL [facility] Neutrophils Percent Auto 63.0 45 - 73 % [facility] Imm Gran Pct Auto 0.2 0.0 - 0.4 % [facility] Lymphocytes Percent Auto 29.5 20 - 40 % [facility] Monocytes Percent Auto 5.2 2 - 11 % [facility] Eosinophils Percent Auto 1.5 0 - 4 % [facility] Basophils Percent Auto 0.6 0 - 2 % [facility] NRBC Pct Auto 0.0 0.0 - 0.2 /100WBC [facility] Neutrophils Absolute Auto 3.4 2.0 - 8.3 x10*3/uL [facility] Imm Gran Abs Auto 0.01 0.00 - 0.03 X10*3/uL [facility] Lymphocytes Absolute Auto 1.6 1.2 - 4.9 X10*3/uL [facility] Monocytes Absolute Auto 0.3 0.1 - 1.2 X10*3/uL [facility] Eosinophils Absolute Auto 0.1 0.0 - 0.4 X10*3/uL [facility] Basophils Absolute Auto 0.0 0.0 - 0.2 X10*3/uL [facility] NRBC Abs Auto 0.000 0.0 - 0.012 X10*3/uL [facility] Blood Venous blood specimen / Unknown 08/20/2024 8:25 AM EST 08/20/2024 11:15 AM EST [facility] LAB BLOOD ORDERABLES Final Res ult Performing Organization Address [facility]/ZIP Co de Phone Number [facility] [address] [place] [phone] * Hepatitis C Antibody with Reflex to HCV, RNA, Quantitative, Real-Time PCR (08/20/2024 8:25 AM EST) Hepatitis C Antibody Nonreactive Nonreactive [facility] Comment:Antibodies to HCV no t detected; does not exclude early acuteHCV infection. Blood Venous blood specimen / Unknown 08/20/2024 8:25 AM EST 08/20/2024 11:15 AM EST [employer] LAB BLOOD ORDERABLES Final Res ult Performing Organization Address City/[facility]/ZIP Co de Phone Number [facility] [address] [place] [phone] * Chlamydia/N. Gonorrhoeae RNA, TMA, Urogenitial (08/20/2024 8:25 AM EST) CT PCR NOT DETECTED Not Detect. [facility] Comment:A not detected test result does not exclude the possibilityof infection because test results can be affected byimproper specimen collection, concurrent antibiotic therapy,or the number of organisms in the specimen which may bebelow the sensitivity of the test. As with many diagnostictests, results from the Xpert CT/NG assay should beinterpreted in conjunction with other laboratory andclinical data available to the clinician.Xpert CT/NG performance has not been evaluated in patientsless than 14 years of age. The assay should not be used forthe evaluationof suspected sexual abuse or for other medico-legalindications. Additional testing is recommended in anycircumstance when false positive or false negative resultscould lead to adverse medical, social or psychologicalconsequences. NG PCR NOT DETECTED Not Detect. [facility] Comment:A not detected test result does not exclude the possibilityof infection because test results can be affected byimproper specimen collection, concurrent antibiotic therapy,or the number of organisms in the specimen which may bebelow the sensitivity of the test. As with many diagnostictests, results from the Xpert CT/NG assay should beinterpreted in conjunction with other laboratory andclinical data available to the clinician.Xpert CT/NG performance has not been evaluated in patientsless than 14 years of age. The assay should not be used forthe evaluationof suspected sexual abuse or for other medico-legalindications. Additional testing is recommended in anycircumstance when false positive or false negative resultscould lead to adverse medical, social or psychologicalconsequences. Urine, Random 08/20/2024 8:2 5 AM EST 08/20/2024 11:24 AM EST Narrative [facility] - 08/20/2024 1:26 PM EST Urine Monae Sneed [facility] MICROBIOLOGY - GENERAL ORD ERABLES Final Result [facility] [address] [place] [phone] [phone] * Hepatitis B surface antigen, EIA (08/20/2024 8:25 AM EST) Pathologist [facility] Hepatitis B Surface Ag Negative Negative [facility] Blood Venous blood specimen / Unknown 08/20/2024 8:25 AM EST 08/20/2024 11:15 AM EST [facility] LAB BLOOD ORDERABLES Final Res ult Performing Organization Address City/[facility]/ZIP Co de Phone Number [facility] [address] [place] [phone] * Hepatitis B Core Antibody, Total (08/20/2024 8:25 AM EST) [facility] Hepatitis B Core Antibody Nonreactive Nonreactive [facility] Blood Venous blood specimen / Unknown 08/20/2024 8:25 AM EST 08/20/2024 11:15 AM [facility] Final Res ult Performing Organization Address [facility]/ZIP Co de Phone Number [facility] [address] [place] [phone] * HIV-1/2 Antigen and Antibodies, Fourth Generation, with Reflexes (08/20/2024 8:25 AM EST) [facility] HIV AB/AG Nonreactive Nonreactive [facility] Comment:HIV-1 p24 Ag and/or HIV-1/HIV-2 Ab not detected.A test result that is nonreactive does not exclude thepossibility of exposure to or infection with HIV-1 and/orHIV-2. Nonreactive results in this assay for individualswith prior exposure to HIV-1 and/or HIV-2 may be due toantigen and antibody levels that are below the limit ofdetection of this assay.The [employer] HIV Ag/Ab Combo assay result andsupplemental assay results should be interpreted inconjunction with the patient's clinical presentation,history and other laboratory results. If the results areinconsistent with clinical evidence, additional testing issuggested to confirm the result. Blood Venous blood specimen / Unknown 08/20/2024 8:25 AM EST 08/20/2024 11:15 AM EST [facility] LAB BLOOD ORDERABLES Final Res ult Performing Organization Address [facility] Co de Phone Number [facility] [address] [place] [phone] * Hepatitis B Surface Antibody, Qualitative (08/20/2024 8:25 AM EST) Pathologist [facility] ~Hepatitis B Surface Antibody NONREACTIVE Nonreactive [facility] Comment:Nonreactive: < 8.00 mIU/mL Blood Venous blood specimen / Unknown 08/20/2024 8:25 AM EST 08/20/2024 11:15 AM EST [facility] LAB BLOOD ORDERABLES Final Res ult Performing Organization Address [facility] de Phone Number [facility] [address] [place] [phone] * (ABNORMAL) Lipid Panel (08/20/2024 8:25 AM EST) Triglycerides 176(H) <150 mg/dL [facility] Comment:Desirable Triglyceri de: less than 150 mg/dLBorderline High Triglyceride 150-199 mg/dLHigh Triglyceride: 200-499 mg/dLVery High Triglyceride: greater than or equal to 5OO mg/dL Cholesterol 209(H) <200 mg/dL [facility] Comment:Desirable Cholestero l: less than 200 mg/dLBorderline High Cholesterol: 200-239 mg/dLHigh Cholesterol: greater than 239 mg/dL LDL Cholesterol Calculated 128(H) <100 mg/dL [facility] Comment:Desirable LDL: less than 100 mg/dLNear Optimal/Above Optimal LDL: 110- 129 mg/dLBorderline High LDL: 130-159 mg/dLHigh LDL: 160-189 mg/dLVery High LDL: greater than or equal to 190 mg/dL HDL Cholesterol 46 >40 mg/dL [facility] Comment:Desirable HDL: great er than 40 mg/dL Note: This HDL assay may give artificially low results in patients with liver disease. Blood Venous blood specimen / Unknown 08/20/2024 8:25 AM EST 08/20/2024 11:15 AM EST us Monaekatie Christiansonkarime [facility] BLOOD ORDERABLES Final Res ult [facility] [address] [place] [phone] * (ABNORMAL) Comprehensive Metabolic Panel (08/20/2024 8:25 AM EST) Sodium 138 135 - 145 mmol/L [facility] Potassium 3.5 3.3 - 5.1 mmol/L [facility] Chloride 102 96 - 108 mmol/L [facility] Carbon Dioxide 28 22 - 29 mmol/L [facility] Anion Gap 12 12 - 20 [facility] Urea Nitrogen (BUN) 15 9 - 16 mg/dL [facility] Creatinine, Serum 0.90 0.5 - 1.4 mg/dL [facility] Estimated Glomerular Filt Rate >60 [facility] Comment:Chronic Kidney Disea se: Estimated GFR < 60 mL/min/1.71b2Izwnrb Kidney Disease: Estimated GFR < 15 mL/min/1.73m2 Glucose 300(H) 60 - 115 mg/dL [facility] Calcium 8.9 8.4 - 10.2 mg/dL [facility] Bilirubin, Total 0.6 0.0 - 1.0 mg/dL [facility] Aspartate Amino Transferase 18 5 - 37 U/L [facility] Alanine Aminotransferase 20 0 - 40 U/L [facility] Total Protein 7.1 6.5 - 8.0 g/dL [facility] Albumin Level 4.1 3.5 - 5.0 g/dL [facility] Alkaline Phosphatase 72 39 - 117 U/L [facility] Blood Venous blood specimen / Unknown 08/20/2024 8:25 AM EST 08/20/2024 11:15 AM EST Monae Okhipo [facility] BLOOD ORDERABLES Final Res ult [facility] [address] [place] [phone] * (ABNORMAL) POCT HGB A1C (08/19/2024 3:06 PM EST) Hemoglobin A1C 14.2(A) 4.0 - 6.0 % QC Media Lot # [id number] Lot# Expiration Date Blood 08/19/2024 3:06 PM EST Monae Okhipo [facility] POINT OF CARE TEST ENTER/EDIT ORDERABLES Final Result from Last 3 Months Insurance Care Teams Food Supervisor Relationship Specialty Start Date End Date Monae Sneed FNP [address] [place] [phone] PCP - General Family Medicine 08/19/24
--- OUTSIDE RECORDS SUMMARY | 2024-10-09 15:35 | XMS_ITS | Encounter Summary ---
Author Organization [employer] Address [address] [place] [address] Care Team Providers Care Associate Web Developer Name Role Phone Monae Sneed [facility] Primary Care Provider [phone] Encounter Details Date Type Department Care Team (Latest Contact Info) Description 10/06/2024 Travel Social History Tobacco Use Types Packs/Day [...] Description 10/12/2024 3:30 PM EST Medication Management [facility] [address] [place] [address] Danyell Bird, BrandonD [address] [place] [address] documented as of this encounter Visit Diagnoses Not on filedocumented in this encounter Additional Health Concerns Assessment Noted Time PHQ-9 Depression Total Score: 0 08/19/20 24 2:33 PM EST documented as of this encounter Care Teams Associate Web Developer Relationship Specialty Start Date End Date Monae Sneed FNP [address] [place] [address] PCP - General Family Medicine 08/19/24 documented as of this encounter
--- OUTSIDE RECORDS SUMMARY | 2024-10-09 15:35 | XMS_ITS | Encounter Summary ---
Author Organization [employer] Address [address] [place] [address] Care Team Providers Care Facilities Technician Name Role Phone Monae Sneed [facility] Primary Care Provider [phone] Reason for Visit * Reason Onset Date Comments Prior Authorization 09/09/2024 Trulicity 0. 75mg.0.5mL Encounter Details Date Type Department Care Team ([facility] st Contact Info) Description 09/09/2024 Telephone [facility] [address] [place], [place] [phone] Monae Sneed FNP [address] [place], [place] [phone] Prior Authorization (Trulicity 0.75mg.0.5mL) Social History Tobacco Use Types Packs/Day Years [...] encounter Miscellaneous Notes * Telephone Encounter - Rylie Badillo - 09/09/2024 9:01 AM EST Request for PA received for Trulicity 0.75mg.0.5mL. Please advise if agree with PA. documented in this encounter Plan of Treatment Upcoming Encounters Date Type Department Care Team (Late st Contact Info) Description 10/12/2024 3:30 PM EST Medication Management [facility] [address] [place] [address] Danyell Bird PharmD [address] [place] [address] documented as of this encounter Visit Diagnoses Not on filedocumented in this encounter Additional Health Concerns Assessment Noted Time PHQ-9 Depression Total Score: 0 08/19/20 2:33 PM EST documented as of this encounter Care Teams Facilities Technician Relationship Specialty Start Date End Date Monae Sneed FNP [address] [place] [address] PCP - General Family Medicine 08/19/24 documented as of this encounter
--- OUTSIDE RECORDS SUMMARY | 2024-10-09 15:35 | XMS_ITS | Encounter Summary ---
Author Organization [employer] Address [address] [place] [address] Care Team Providers Care Vice President Investor Relations Name Role Phone Monae Sneed [facility] Primary Care Provider [phone] Reason for Visit * Reason Onset Date Comments Chart Prep 09/15/2024 Encounter Details Date Type Department Care Team (Late st Contact Info) Description 09/15/2024 Telephone [facility] [address] [place], [place] [phone] Tiara Beckham MA Chart Prep Social History Tobacco Use Types Packs/Day Years [...] encounter Miscellaneous Notes * Telephone Encounter - Tiara Beckham [place] - 09/15/2024 10:07 AM EST Chart Prep Labs: done Images: not applicable Vaccines due: Covid Due, Hep B Due, Flu Due, and Shingles in pharmacy Due Referrals: Gastroenterology pending appt and Podiatry pending appt Screenings: Colonoscopy and Retinopathy, Urine protein Overdue care gaps: Glucose documented in this encounter Plan of Treatment Upcoming Encounters Date Type Department Care Team (Late st Contact Info) Description 10/12/2024 3:30 PM EST Medication Management [facility] [address] [place] [address] Danyell Bird, BrandonD [address] [place] [address] documented as of this encounter Visit Diagnoses Not on filedocumented in this encounter Additional Health Concerns Assessment Noted Time PHQ-9 Depression Total Score: 0 08/19/20 24 2:33 PM EST documented as of this encounter Care Teams Vice President Investor Relations Relationship Specialty Start Date End Date Monae Sneed FNP [address] [place] [address] PCP - General Family Medicine 08/19/24 documented as of this encounter
--- OUTSIDE RECORDS SUMMARY | 2024-10-09 15:35 | XMS_ITS | Encounter Summary ---
Author Organization [employer] Address [address] [place] [address] Care Team Providers Care Fios Line Installer Name Role Phone Monae Sneed [facility] Primary Care Provider [phone] Encounter Details Date Type Department Care Team (Latest Contact Info) Description 09/15/2024 Travel Social History Tobacco Use Types Packs/Day [...] Description 10/12/2024 3:30 PM EST Medication Management [facility] [address] [place] [address] Danyell Bird, BrandonD [address] [place] [address] documented as of this encounter Visit Diagnoses Not on filedocumented in this encounter Additional Health Concerns Assessment Noted Time PHQ-9 Depression Total Score: 0 08/19/20 24 2:33 PM EST documented as of this encounter Care Teams Fios Line Installer Relationship Specialty Start Date End Date Monae Sneed FNP [address] [place] [address] PCP - General Family Medicine 08/19/24 documented as of this encounter
--- OUTSIDE RECORDS SUMMARY | 2024-10-09 15:35 | XMS_ITS | Clinical Summary ---
Author Organization [facility] Address [address] [place] [address] Phone Care Team Providers Care Programmer Business Name Role Phone Monae Sneed DOOR AND ARRIVAL ATTENDANT Primary Care Provider Social History Tobacco Use Types Packs/Day Years Used Date Smoking Tobacco: Never Assessed Sex and Gender Information Value Date Recorded Sex Assigned at Not on file Gender Identity Not on file Sexual Orientation Not on file Plan of Treatment Upcoming Encounters Date Type Department Care Team ([facility] Contact Info) Description 11/26/2024 3:00 PM EDT Consult Orthopedic Surgery - [place] [phone] [phone] Jay Lopez DPM [address] [address] Health Maintenance Due Date Last Done Comments Diabetes: Annual GFR (Glomer ular Filtration Rate) 1973 Pneumococcal Vaccine: Pediat rics (0 to 5 Years) and At-Risk Patients (6 to 64 Years) (1 of 2 - PCV) 1979 Diabetes: Annual Foot Exam 1983 Diabetes: Annual Retina Eye Exam 1983 DTaP,Tdap,and Td Vaccines (1 - Tdap) 1992 Hepatitis B Vaccines (1 of 3 - 19+ 3-dose series) 1992 Zoster Vaccines (1 of 2) 2023 COVID-19 Vaccine ( - 2023-2 5 season) 2024 Influenza Vaccine (#1) 2024 Cholesterol Screening (Lipid Panel) 10/07/2024 Colorectal Cancer Screening: Colonoscopy 10/07/2024 Depression Screening 10/07/2024 Diabetes: Annual Urine Albumin-Creatinine Ratio (uACR) 10/07/2024 Diabetes: Blood Sugar Contro l Test (HGBA1C) 10/07/2024 HIV Screening 10/07/2024 Hepatitis C Screening 10/07/2024 Social Influencers of Health Screening 10/07/2024 HIB Vaccines Aged Out No longer eligi ble based on patient's age to complete this topic HPV Vaccines Aged Out No longer eligi ble based on patient's age to complete this topic Hepatitis A Vaccines Aged Out No long er eligible based on patient's age to complete this topic IPV Vaccines Aged Out No longer eligi ble based on patient's age to complete this topic MMR Vaccines Aged Out No longer eligi ble based on patient's age to complete this topic Meningococcal ACWY Vaccine Aged Out N o longer eligible based on patient's age to complete this topic RSV Immunization Patients Un ildefonso 20 months Aged Out No longer eligible b ased on patient's age to complete this topic Varicella Vaccines Aged Out No longer eligible based on patient's age to complete this topic Care Teams Programmer Business Relationship Specialty Start Date End Date Monae Sneed FNP [address] [place] [phone] PCP - General Family Medicine 10/07/24
[2024-10-12 02:59] LABS: TS Negative Control Passed; TS Panel A 0; TS Panel B 0; TS Positive Control Passed; TSpotTB Negative (Negative)
== END 2024-10-09 15:33 | disposition home or self-care (01) ==
LOC: HO.HHCL 15:32
PROVIDERS: Visit Provider Internal Medicine
DX: Z02.6 Encounter for examination for insurance purposes (principal); Z11.1 Encounter for screening for respiratory tuberculosis
CPT/HCPCS: 36415; 86481

== ENCOUNTER 2024-11-18 08:21 | Outpatient (REF) | payer OTHER, SELFPAY ==
[2024-11-18 11:41] LABS: Cholesterol 110 mg/dL (<200); HDL Cholesterol 39 mg/dL (>40); LDL Cholesterol Calculated 54 mg/dL (<100); Triglycerides 89 mg/dL (<150)
== END 2024-11-18 08:22 | disposition home or self-care (01) ==
LOC: HO.HHCL 08:21
PROVIDERS: Visit Provider Pediatrics
DX: E11.65 Type 2 diabetes mellitus with hyperglycemia (principal)
CPT/HCPCS: 36415; 80061